=== PATIENT | male | born 1950 | race Caucasian/White ===

== ENCOUNTER 2018-11-06 12:46 | Inpatient (IN) ==
[2018-11-06] MEDS ORDERED: TYLENOL PO PRN (14:56)
[2018-11-06] MEDS ORDERED: NS 1,000 ML IV SCH (15:00)
[2018-11-06] MEDS ORDERED: ROCEPHIN 1 GM in NS 50 ML IV SCH (15:00)
[2018-11-06] MEDS ORDERED: DUONEB (A & A) INH PRN (15:00)
[2018-11-06 15:50] LABS: BASO# 0.04 X1000 (0.0-0.2); BASO% 0.4 % (0.0-0.8); EOS# 0.27 X1000 (0.0-0.7); HEMATOCRIT 41.3 % (42.0-52.0); HEMOGLOBIN 13.8 g/dL (14.0-18.0); IMM GRAN# 0.03 X1000 (0.0-0.04); IMM GRAN% 0.3 % (0.0-0.5); LYMPH# 1.52 X1000 (1.2-3.4); LYMPH% 17.1 % (20.5-51.1); MCH 31.7 PG (27-31); MCHC 33.4 g/dL (33-37); MCV 94.9 FL (81-99); MONO# 0.77 X1000 (0.11-0.59); MONO% 8.6 % (1.7-9.3); MPV 10.8 FL (7.4-10.4); NEUT# 6.28 X1000 (1.4-6.5); NEUT% 70.6 % (42.2-75.2); PLT 200 X1000 (130-400); RBC 4.35 XMIL (4.7-6.1); RDW 13.8 % (11.5-14.5); WBC 8.91 X1000 (4.8-10.8)
--- NOTE | 2018-11-06 15:50 | Diag Imaging Result Doc PS360 ---
EXAM: CHEST-PORTABLE HISTORY: Pneumonia TECHNIQUE: Chest single view COMPARISON: None. FINDINGS: There are increased interstitial markings in the mid and lower lungs bilaterally. Heart is mildly prominent. The small pleural effusions. Mild vascular distention. IMPRESSION: Basilar pneumonia with small pleural effusions and mild pulmonary edema. Electronically signed by Constantine Bingham 11/06/2018 3:48 PM
[2018-11-06 15:58] LABS: BLOOD TYPE ARTERIAL; SAMPLE BLOOD
[2018-11-06 15:59] LABS: ALLEN TEST YES; BE -3.4 mmoll (-3.0-3.0); HCO3-(ACT) 22.2 mmoll (20.0-26.0); METHB 0.8 % (0.0-1.5); MODALITY CANNULA; O2HB 93.8 % (95.0-99.0); PCO2(98.6) 32 mmHg (35-45); PO2(98.6) 74 mmHg (60-100); SAO2 97.1 % (95.0-100.0); THB 13.6 g/dL (11.5-17.4); pH(98.6) 7.41 (7.35-7.45)
[2018-11-06 16:07] LABS: AGAP 15; ALB/GLOB RATIO 1.4; ALBUMIN 3.5 g/dL (3.5-5.0); ALKALINE PHOSPHATASE 84 U/L (32-122); BUN 15 mg/dL (8-22); CALCIUM 8.2 mg/dL (8.8-10.2); CHLORIDE 99 mmol/L (98-107); COSMO 269; CREATININE 1.1 mg/dL (0.7-1.2); ESTIMATED GFR > 60; GLUCOSE 129 mg/dL (70-104); GOT 26 U/L (10-34); GPT 17 U/L (10-44); POTASSIUM 4.8 mmol/L (3.5-5.1); SODIUM 133 mmol/L (136-145); TCO2 19 mmol/L (25-35); TOTAL BILIRUBIN 0.71 mg/dL (0.20-1.00)
[2018-11-06] MEDS: DUONEB (A & A) INH SCH ×3 (16:18→23:31)
--- NOTE | 2018-11-06 16:33 | EKG Report ---
Test Performed on : 11/06/2018 4:25:48 PM Test Reason : new admit >? heart failure Blood Pressure : / mmHG Vent. Rate : 110 BPM Atrial Rate : 110 BPM P-R Int : 144 ms QRS Dur : 098 ms QT Int : 356 ms P-R-T Axes : 045 -36 107 degrees QTc Int : 481 ms Sinus tachycardia. with premature atrial complexes. Left axis deviation Nonspecific T wave abnormality Abnormal ECG When compared with ECG of 25-DEC-2017 09:30, premature atrial complexes. are now present Vent. rate has increased BY 50 BPM Nonspecific T wave abnormality, worse in Lateral leads Confirmed by Anca Morrison MD ([id number]) on 11/11/2018 9:28:47 PM
--- NOTE | 2018-11-06 16:53 | HISTORY AND PHYSICAL ---
PRIMARY CARE PROVIDER: Jesika Vale MD CHIEF COMPLAINT: Direct admit from Dr. Vale's office for hypoxia and failed outpatient treatment of pneumonia. HISTORY OF PRESENT ILLNESS: Mr. Light is a 68-year-old gentleman who carries a past medical history of hyperlipidemia, however, he recently quit taking his statin. Pancreatic problems 5 years ago. He reports he had a new bowel duct made from his intestines, recent AAA repair, pleurisy, takes an antacid at home and new onset of bilateral lower extremity pedal edema. He reports on October 17, he went to the Urgent Care was diagnosed with pneumonia, was sent home on p.o. antibiotics and breathing treatments. He reports then his O2 levels were barely in the 90s. He reports increase in work of breathing and persistent cough. Initially, it was clear and blood tinged and the blood cleared up and he continues to have clear mucus. He has not been sleeping well because of the cough. He has hot flashes. He did finish all his p.o. antibiotics. He re- presented back today at Dr. Vale's office. They believe he still has continued pneumonia and was sent for direct admit because of hypoxia 86% on room air. We are currently awaiting his full workup. PAST MEDICAL HISTORY: As per HPI. PAST SURGICAL HISTORY: 1. New bile duct from intestines. 2. Cholecystectomy. 3. AAA repair. SOCIAL HISTORY: He is . He has a son. He was a smoker for 55 years. He was a 1 pack per day smoker for 55 years. He quit right before his AAA surgery. FAMILY HISTORY: Unknown. However, he believes his biological father and uncle from [place]. HOME MEDICATIONS: Antacid. ALLERGIES: He reports he has allergies, but he does not know to what medication. DIAGNOSTIC DATA: Currently pending. ASSESSMENT AND PLAN: 1. Probable failed outpatient pneumonia. We will initially place him on Rocephin and levofloxacin. Gently hydrate him. He does have bilateral lower extremity edema. Unsure if there is any underlying heart failure again awaiting chest x-ray. ProBNP. We will also check blood cultures and sputum cultures. 2. Hypoxia. We will continue with supplemental O2. Check an ABG. 3. Bilateral lower extremity pitting edema. We will check a proBNP. Continue with elevation of his feet. He denies any heart failure history. 4. Hyperlipidemia. However, he does not feel that he has high cholesterol, he quit taking a statin. 5. Gastroesophageal reflux disease. 6. Further recommendation to follow physician evaluation, laboratory and diagnostic data. Dictated by ALVIN Palma for Se Albrecht MD cc: MD Se Ardon MD I agree with most components of history, physical, assessment and plan. A separate addendum has been dictated. ALEXANDER
[2018-11-06] MEDS: LEVAQUIN 750 MG/D5W 750 MG/150 ML IVPB IV SCH (18:38)
[2018-11-06] MEDS ORDERED: LASIX IV ONE (19:28)
--- NOTE | 2018-11-06 19:50 | ECHO REPORT ---
ORDER DATE: 11/06/2018 INTERPRETING PHYSICIAN: Efrain Alvarez MD INDICATION: CHF. M-MODE MEASUREMENTS: Left ventricle end diastole: 7.1 cm. Left ventricle end systole: 6.6 cm. Posterior wall: 0.7 cm. Interventricular septum: 0.7 cm. Left atrium: 4.4 cm. Aortic diameter: 3.4 cm. SUMMARY OF 2-DIMENSIONAL IMAGIN. Left ventricular function is severely impaired. Optison was added to optimize visualization of the endocardium. The left ventricular chamber is markedly dilated. The impairment is global. Ejection fraction is estimated at 15% to 20%. 2. The left atrium is markedly dilated. The right atrium and right ventricle are also moderately to significantly dilated. 3. The aortic valve has three cusps and they open normally. Color flow mapping is unremarkable. 4. The tricuspid valve shows moderate degree of regurgitation. The inferior vena cava is markedly dilated. 5. Pulmonary systolic pressure is estimated grossly at 58 mmHg. 6. The mitral valve shows a mild degree of regurgitation. 7. Pulsed wave Doppler of mitral inflow shows a pseudo normal pattern with a tall E wave with a short deceleration time and a short A wave. 8. Tissue Doppler of septal and lateral mitral annulus is markedly decreased. The velocities are all 3 cm per second, indicating severe diastolic dysfunction. 9. Pulmonary venous flow shows predominance of a diastolic component. 10.There is no pericardial effusion, mass, and no thrombus. 11.The LVOT VTI is only 6.8 cm, indicating that the patient is in a low cardiac output state. SUMMARY: In summary, this study shows: 1. Markedly dilated left ventricle with severely impaired systolic function, ejection fraction 15% to 20%. 2. Mild to moderate degree of mitral regurgitation. 3. Severe diastolic dysfunction. 4. Moderate pulmonary hypertension estimated at 58 mmHg. 5. Significant enlargement of the left atrium. 6. Moderately enlarged right-sided chambers. The study is consistent with a decompensated dilated cardiomyopathy. Clinical correlation is recommended. cc: Efrain Alvarez MD
--- NOTE | 2018-11-06 21:05 | HISTORY AND PHYSICAL ---
ADDENDUM:I agree with most components of history, physical, assessment and plan. In brief Mr. Light is 68 years old man with past medical history of abdominal aortic aneurysm repair, tobacco abuse where he quit about 1 year ago who was recently diagnosed with pneumonia approximately 20 days ago and was provided 10 days of antibiotics from an urgent care who saw his regular doctor for persistent shortness of breath, orthopnea and cough and was sent over to the hospital for direct admission for hypoxia with saturation as low as 85%. SUBJECTIVE: At the time of my evaluation patient says his hemoptysis has resolved but he continues to cough up yellowish expectoration. He has significant orthopnea, shortness of breath on physical exertion. Currently patient and his are at bedside. They denied any known history of coronary artery disease, DVT, PE or congestive heart failure. VITALS: Temperature 98.1 degrees, pulse 113, respiratory 22, blood pressure 145/74, saturating 94% on 4 L nasal cannula. PHYSICAL EXAMINATION: GENERAL: Does not appear in any acute distress. Oral cavity is moist. Decreased air entry with inspiratory crackles bilateral infrascapular region, no wheeze or rhonchi. S1, S2 normal. No murmur, rub, or gallop. ABDOMEN: Soft, nontender. He has significantly elevated jugular venous distention and positive hepatojugular reflex, bilateral ankle edema. He is alert, oriented x3. LABS: Suggestive of normocytic anemia, normal platelet count, he does have normal looking ABG, normal kidney function. Significant elevated proBNP and lactic acidosis as well. Microbiology. Blood culture, sputum culture pending. ASSESSMENT AND PLAN: 1. Acute hypoxic respiratory failure. Based on chest x-ray, orthopnea and bilateral lower extremity edema new onset biventricular failure is the most likely differential diagnosis however there is also component of bilateal pneumonia considering his symptoms of persistent cough and chest x-ray. I will stop intravenous fluids, give patient intravenous diuretic 1 stat and starting tomorrow morning. EKG did not have any acute coronary syndrome changes. I will follow up troponins and echocardiogram. I will also continue him on intravenous levofloxacin. 2. Others, continue home famotidine for GERD, atorvastatin for hyperlipidemia. 3. Disposition. Continue monitor patient inside the hospital. Plan of care discussed with him and his at bedside, all of the questions have been answered. cc: Se Albrecht MD [facility]
[2018-11-07 02:29] LABS: AGAP 14; BUN 17 mg/dL (8-22); CALCIUM 8.3 mg/dL (8.8-10.2); CHLORIDE 102 mmol/L (98-107); COSMO 278; ESTIMATED GFR > 60; GLUCOSE 139 mg/dL (70-104); POTASSIUM 3.9 mmol/L (3.5-5.1); SODIUM 137 mmol/L (136-145); TCO2 21 mmol/L (25-35)
[2018-11-07] MEDS: DUONEB (A & A) INH SCH ×6 (03:42→23:34)
--- NOTE | 2018-11-07 05:11 | EKG Report ---
Test Performed on : 11/07/2018 02:12:40 AM Test Reason : abnorm rhythm Blood Pressure : / mmHG Vent. Rate : 102 BPM Atrial Rate : 102 BPM P-R Int : 154 ms QRS Dur : 102 ms QT Int : 374 ms P-R-T Axes : 041 -28 120 degrees QTc Int : 487 ms Sinus tachycardia. with occasional premature ventricular complexes. Possible Left atrial enlargement Nonspecific T wave abnormality Abnormal ECG When compared with ECG of 06-NOV-2018 16:25, (Unconfirmed) premature ventricular complexes. are now present premature atrial complexes. are no longer present Confirmed by Anca Morrison MD ([id number]) on 11/11/2018 9:29:07 PM
[2018-11-07 07:05] LABS: HEMATOCRIT 37.4 % (42.0-52.0); HEMOGLOBIN 12.5 g/dL (14.0-18.0); MCH 31.7 PG (27-31); MCHC 33.4 g/dL (33-37); MCV 94.9 FL (81-99); PLT 181 X1000 (130-400); RBC 3.94 XMIL (4.7-6.1); RDW 13.6 % (11.5-14.5); WBC 8.14 X1000 (4.8-10.8)
[2018-11-07 07:06] LABS: BASO# 0.03 X1000 (0.0-0.2); BASO% 0.4 % (0.0-0.8); EOS% 6.1 % (0.0-10.0); IMM GRAN# 0.06 X1000 (0.0-0.04); IMM GRAN% 0.7 % (0.0-0.5); LYMPH# 1.82 X1000 (1.2-3.4); LYMPH% 22.4 % (20.5-51.1); MONO# 0.88 X1000 (0.11-0.59); MONO% 10.8 % (1.7-9.3); MPV 11.2 FL (7.4-10.4); NEUT# 4.85 X1000 (1.4-6.5); NEUT% 59.6 % (42.2-75.2)
[2018-11-07 07:32] LABS: ALB/GLOB RATIO 1.2; CALCIUM 8.1 mg/dL (8.8-10.2); CREATININE 1.3 mg/dL (0.7-1.2); POTASSIUM 4.4 mmol/L (3.5-5.1); TOTAL BILIRUBIN 0.43 mg/dL (0.20-1.00); TOTAL PROTEIN 5.6 g/dL (6.3-8.3)
[2018-11-07] MEDS: LASIX IV SCH ×2 (07:52→17:27)
--- NOTE | 2018-11-07 08:01 | Diag Imaging Result Doc PS360 ---
EXAM: CHEST-PORTABLE 11/07/2018 HISTORY: Pneumonia TECHNIQUE: AP portable at 0753 COMMENT: There is interstitial and alveolar opacity particularly in the lower lung keith bilaterally. This was also present on 11/06/2018 but has improved slightly particularly with respect to the left lower lobe. The hemidiaphragm is now visible which was not the case previously. IMPRESSION: Slightly improved bilateral pneumonia. Electronically signed by Spenser Torres 11/07/2018 7:59 AM
[2018-11-07] MEDS: PEPCID PO SCH (08:21)
[2018-11-07] MEDS: LIPITOR PO SCH (08:21)
[2018-11-07] MEDS: COREG PO SCH ×2 (10:33→22:40)
--- NOTE | 2018-11-07 11:46 | Diag Imaging Result Doc PS360 ---
EXAM: CT THORAX W/O CONTRAST 11/07/2018 HISTORY: probably CHF vs treatment failure of pneumonia. TECHNIQUE: This exam was performed using automated exposure control, adjustment of mA or kV according to patient size, and/or use of iterative reconstruction technique. COMMENT: There are no previous CT examinations of the thorax. There are some pleural-based fibrotic changes in the upper lung zones and there is COPD. There is alveolar and interstitial opacity in both lung bases. There is honeycombing and some possible traction bronchiectasis. There is biliary gas primarily in the left hepatic lobe. This was also present at the time the previous abdominal study of 12/18/2017. The basilar opacities are much worse than at the time of the previous examination of the abdomen. There were some pleural-based fibrotic changes in both lung bases that time however. There is no evidence of significant adenopathy. There is a small pericardial effusion. There is cardiomegaly. There are bilateral pleural effusions. The regional skeleton appears to be intact. IMPRESSION: Pulmonary fibrosis with superimposed pulmonary edema. Pericardial and pleural effusions. Electronically signed by Spenser Torres 11/07/2018 11:44 AM
--- NOTE | 2018-11-07 14:39 | CARDIOLOGY CONSULTATION ---
DATE: 11/07/2018 CHIEF COMPLAINT ON PRESENTATION: Shortness of breath. HISTORY OF PRESENT ILLNESS: Mr. Light is a 68-year-old white male with a history of AAA repair. Over the last 4 to 6 weeks, he has been dealing with some cough productive of sputum that is at times bloody. He has had worsening shortness of breath. He has had outpatient therapy for pneumonia and it sounds like it has not improved. He was seen by his primary care physician and admitted for failure of outpatient pneumonia treatment. He denies any orthopnea. He denies any chest pain. PAST MEDICAL HISTORY: 1. Significant for peripheral vascular disease with history of AAA repair. 2. Hyperlipidemia. 3. Reflux disease. SOCIAL HISTORY: He quit smoking 1 year ago. He is . FAMILY HISTORY: Significant for he thinks an ME in his biological father but he is not clear. REVIEW OF SYSTEMS: A 10 system review of systems is negative except for those things mentioned in the HPI. PHYSICAL EXAMINATION: Vital Signs: The patient is afebrile. His heart rate is 90, his blood pressure is 109/71. His intakes and outputs are inaccurate secondary to lack of strict measurement. General: He is in no acute distress. HEENT: Oropharynx is moist. Poor dentition. Eye examination is pink conjunctivae, white sclerae. Neck: Examination shows no obvious thyromegaly or thyroid tenderness. Cardiovascular: He sounds to be in a regular rate and rhythm. He has no obvious murmurs. He has no S3. He has no lower extremity edema. Chest: Has some mild basilar rales. No increased work of breathing. Abdomen: Soft, nontender, nondistended. He has no obvious organomegaly. Skin: Warm and dry throughout without any rashes. Neurological: He is moving all extremities well. He has no lateralizing deficits. PERTINENT DATA: CT of the chest showed pulmonary fibrosis with superimposed pulmonary edema. His echocardiogram demonstrated an ejection fraction of 15 to 20 percent, moderate MR, severe diastolic dysfunction, pulmonary hypertension was noted, severe left atrial enlargement, no pericardial effusion. His EKGs demonstrated at 16:25 sinus tach, suggestion of LVH, nonspecific ST-T changes. Subsequent EKG on the at 2:12 a.m. showed sinus rhythm, rate of 102 beats per minute, suggestion of nonspecific ST-T changes. His laboratory data demonstrates a white count 8.1, hematocrit 37, platelet count is 181,000. His sodium is 137, potassium 3.9 BUN 17, creatinine is 1.0. His cardiac enzymes are negative. His proBNP yesterday was 25,000. His lactate on presentation was 2.4. Albumin is 3. ASSESSMENT: Mr. Light is a 68-year-old gentleman who presents with new onset heart failure. PLAN: We will proceed with medication adjustments. He has been placed on Lasix and I will add in losartan. He is already on some Coreg. We will continue with those medications and hopefully titrate during this inpatient stay. We will ensure that he has strict intakes and outputs. cc: Germán Way MD
[2018-11-07] MEDS: LEVAQUIN 750 MG/D5W 750 MG/150 ML IVPB IV SCH (15:41)
--- NOTE | 2018-11-07 16:44 | PROGRESS NOTE ---
DATE: 11/07/2018 INTERVAL HISTORY: The patient is still requiring oxygen, but dyspnea improved. Saturations are reasonable. Afebrile. No acute events overnight. No new complaints. REVIEW OF SYSTEMS: A 12 point review of systems negative except as per Interval History. LABORATORY DATA: WBC 8.1, hemoglobin 12.5, hematocrit 37.4, platelets 181,000. Sodium 137, potassium 3.9, BUN 17, creatinine 1, glucose 139. Troponin negative x3. BNP 25,000. IMAGING: CT chest with pulmonary fibrosis and superimposed pulmonary edema. No clear evidence of residual pneumonia. Small pericardial effusion. VITALS: Temperature maximum 98.1 degrees, pulse 95, respirations 16, blood pressure 110/73, O2 saturation 95% on 4 L by nasal cannula. PHYSICAL EXAMINATION: General: No acute distress. Vitals: As above. HEENT: Normocephalic, atraumatic. Moist mucous membranes. Neck: No cervical adenopathy. Cardiovascular: Regular rate and rhythm. No murmurs noted. Pulmonary: Reasonable air entry. No wheezing. Bibasilar crackles noted. Abdomen: Soft, nontender, nondistended. Bowel sounds positive. Extremities: Peripheral pulses intact. No clubbing or cyanosis. Mild pitting edema limited to the feet. Neurologic: Cranial nerves grossly intact. No focal deficits. Psychiatric: Normal mood and affect. Awake, alert, and oriented x3. Skin: No new rashes or lesions identified. ASSESSMENT AND PLAN: 1. Acute hypoxic respiratory failure, acute combined systolic and diastolic congestive heart failure. The patient with recent weight gain, worsening edema, hypoxia noted in clinic, and sent here from [facility]. Initially, there was some concern for failure of treatment of outpatient pneumonia, but CT scan here did not really show any pneumonia. No fever, no white count. It does show significant edema, so favor congestive heart failure. If no clear evidence of pneumonia develops, then we will likely discontinue antibiotics tomorrow. Placed on diuresis with Lasix 40 IV q.12 h., which we will continue for now. Strict intakes and outputs ordered as it does not appear to have been done at this point. We will monitor ins and outs. The patient does state that his dyspnea is improved and that his lower extremity edema is also significantly improved. Started on Coreg this morning and Cardiology initiated losartan. We will monitor kidney function. No previous diagnosis of heart failure. We will see what Cardiology says about additional ischemic workup. Continue diuresis and monitor. Echocardiogram showed significantly decreased ejection fraction of 15 to 20, as well as diastolic failure and pulmonary hypertension. 2. Chronic obstructive pulmonary disease. No wheezing. Reasonable air entry. No sign of exacerbation at this time. Continue to monitor. Nebulizers as needed. 3. Hyponatremia, resolved. 4. Hyperlipidemia. Continue home atorvastatin. 5. Gastroesophageal reflux disease. Continue home Pepcid.
[2018-11-08] MEDS ORDERED: KLOR-CON PO ONE (02:24)
[2018-11-08] MEDS: DUONEB (A & A) INH SCH ×6 (03:32→23:29)
[2018-11-08] MEDS: LASIX IV SCH ×2 (06:11→17:19)
[2018-11-08 07:27] LABS: BASO# 0.02 X1000 (0.0-0.2); BASO% 0.2 % (0.0-0.8); EOS# 1.47 X1000 (0.0-0.7); EOS% 15.8 % (0.0-10.0); HEMATOCRIT 42.2 % (42.0-52.0); IMM GRAN# 0.04 X1000 (0.0-0.04); IMM GRAN% 0.4 % (0.0-0.5); LYMPH# 1.64 X1000 (1.2-3.4); LYMPH% 17.6 % (20.5-51.1); MCH 31.7 PG (27-31); MCHC 33.2 g/dL (33-37); MCV 95.7 FL (81-99); MONO% 7.5 % (1.7-9.3); MPV 11.1 FL (7.4-10.4); NEUT# 5.46 X1000 (1.4-6.5); NEUT% 58.5 % (42.2-75.2); PLT 240 X1000 (130-400); RBC 4.41 XMIL (4.7-6.1); RDW 13.8 % (11.5-14.5); WBC 9.33 X1000 (4.8-10.8)
[2018-11-08 07:46] LABS: CALCIUM 8.8 mg/dL (8.8-10.2); CREATININE 1.3 mg/dL (0.7-1.2); POTASSIUM 3.6 mmol/L (3.5-5.1)
[2018-11-08] MEDS: COZAAR PO SCH (09:52)
[2018-11-08] MEDS: LIPITOR PO SCH (09:52)
[2018-11-08] MEDS: COREG PO SCH ×2 (09:52→21:40)
[2018-11-08] MEDS: PEPCID PO SCH (09:52)
--- NOTE | 2018-11-08 16:46 | PROGRESS NOTE ---
DATE: 11/08/2018 INTERVAL HISTORY: The patient is still requiring a fair amount of oxygen, but symptomatically improving. Lower extremity edema entirely resolved. Still with a little nonproductive cough. No new complaints. No acute events overnight. REVIEW OF SYSTEMS: A 12 point review of systems negative except as per Interval History. LABORATORIES: WBC 9.3, hemoglobin 14.0, hematocrit 42.2, platelets 240,000. Sodium 138, potassium 3.6, bicarbonate 25, BUN 19, creatinine 1.3. Glucose 137. BNP 11,498. VITALS: Temperature maximum 98.1 degrees, pulse 101, respirations 16, blood pressure 106/69. PHYSICAL EXAMINATION: General: No acute distress. Vitals: As above. HEENT: Normocephalic, atraumatic. Moist mucous membranes. Neck: No cervical adenopathy. Cardiovascular: Regular rate and rhythm. No murmurs noted. Pulmonary: Good air entry. No wheezing. Still with some bibasilar crackles, although slightly improved. Abdomen: Soft, nontender, nondistended. Bowel sounds positive. Extremities: Peripheral pulses intact. No clubbing or cyanosis. No further edema. Neurologic: Cranial nerves grossly intact. No focal deficits. Psychiatric: Normal mood and affect. Awake, alert, and oriented x3. Skin: No new rashes or lesions identified. ASSESSMENT AND PLAN: 1. Acute hypoxic respiratory failure, acute combined systolic and diastolic congestive heart failure. The patient's edema resolved, but still requiring a fair amount of oxygen. Beginning to get some diuresis with his current dose of Lasix. We will continue current dose of Lasix for now. CT yesterday with no evidence of pneumonia. The patient afebrile without leukocytosis, so we will go ahead and discontinue antibiotics. The patient on Coreg and Cozaar for his heart failure. He did have a couple episodes of mild bradycardia, but discussing it with the patient, he seems to have been asymptomatic with those. May be difficult to titrate his Coreg up, though. Continue diuresis and monitor. Hopefully, we can get him off oxygen and discharged home within the next day or 2 unless Cardiology decides to pursue further ischemic workup. 2. Chronic obstructive pulmonary disease. No wheezing. Reasonable air entry. No sign of exacerbation at this time. Continue nebulizers as needed. 3. Hyponatremia, resolved. 4. Hyperlipidemia. Continue home statin. 5. Gastroesophageal reflux disease. Continue home Pepcid.
--- NOTE | 2018-11-08 20:50 | CARDIOLOGY PROGRESS NOTE ---
DATE: 11/08/2018 SUBJECTIVE: Mr. Light has had very poor sleep quality. He reports he is somewhat anxious with the new health diagnoses that have come this hospitalization. PHYSICAL EXAMINATION: Vital Signs: He is afebrile, heart rate 97, blood pressure 104/74. Overall, he appears to have a negative fluid balance with some voids not measured. General: He is in no acute distress. Cardiovascular: He sounds to be in a regular rate and rhythm. He has no murmurs. He has no S3. He has no lower extremity edema. CHEST: Exam is clear. He has no increased work of breathing. Abdomen: Soft, nontender. DATA: Potassium is 3.6, BUN 19, creatinine is 1.3. His white count is 9, hematocrit is 42. ASSESSMENT: Mr. Light is a 68-year-old gentleman with new onset heart failure. PLAN: 1. At this time, we will continue with medications. He is on Lasix which we will change to 40 mg p.o. daily. He is on losartan and a low dose of Coreg. 2. His proBNP reduced significantly on the above regimen. 3. Hopefully, he could be discharged in the near future with outpatient ischemia evaluation performed. cc: Germán Way MD
[2018-11-08] MEDS: DESYREL PO PRN (21:40)
[2018-11-09] MEDS: DUONEB (A & A) INH SCH ×6 (03:37→23:20)
--- NOTE | 2018-11-09 06:18 | Diag Imaging Result Doc PS360 ---
EXAM: CHEST-PORTABLE HISTORY: acute chf TECHNIQUE: Portable chest COMPARISON: 11/07/2018 FINDINGS: There are increased interstitial markings in the mid and lower lungs similar to the prior exam. The heart is mildly enlarged. There are small pleural effusions. Mild vascular distention. IMPRESSION: Stable chest. 'V 11/07/2018 Electronically signed by Constantine Bingham 11/09/2018 6:16 AM
[2018-11-09 07:16] LABS: BASO# 0.03 X1000 (0.0-0.2); BASO% 0.4 % (0.0-0.8); EOS# 1.47 X1000 (0.0-0.7); EOS% 18.1 % (0.0-10.0); HEMATOCRIT 38.6 % (42.0-52.0); HEMOGLOBIN 12.8 g/dL (14.0-18.0); IMM GRAN# 0.04 X1000 (0.0-0.04); IMM GRAN% 0.5 % (0.0-0.5); LYMPH# 1.52 X1000 (1.2-3.4); LYMPH% 18.7 % (20.5-51.1); MCH 31.8 PG (27-31); MCHC 33.2 g/dL (33-37); MCV 95.8 FL (81-99); MONO# 0.64 X1000 (0.11-0.59); MONO% 7.9 % (1.7-9.3); MPV 10.8 FL (7.4-10.4); NEUT# 4.43 X1000 (1.4-6.5); NEUT% 54.4 % (42.2-75.2); PLT 217 X1000 (130-400); RBC 4.03 XMIL (4.7-6.1); RDW 13.8 % (11.5-14.5); WBC 8.13 X1000 (4.8-10.8)
[2018-11-09 07:33] LABS: CALCIUM 8.7 mg/dL (8.8-10.2); CREATININE 1.2 mg/dL (0.7-1.2); POTASSIUM 3.5 mmol/L (3.5-5.1)
[2018-11-09] MEDS: LASIX PO SCH (11:27)
[2018-11-09] MEDS: LIPITOR PO SCH (11:27)
[2018-11-09] MEDS: PEPCID PO SCH (11:28)
[2018-11-09] MEDS: COREG PO SCH (11:29)
[2018-11-09] MEDS: COZAAR PO SCH ×2 (11:30→12:36)
[2018-11-09] MEDS ORDERED: TOPROL XL PO SCH ×2 (12:15→12:25)
[2018-11-09] MEDS: LANOXIN PO SCH (12:37)
--- NOTE | 2018-11-09 17:09 | PROGRESS NOTE ---
DATE: 11/09/2018 INTERVAL HISTORY: The patient reports symptomatic improvement in his symptoms. We have been able to wean down his oxygen some, but when we attempted to take him off oxygen, he rapidly desaturated down to the 80s. Afebrile overnight but did have several episodes of nonsustained V-tach. Otherwise, no acute events overnight. No new complaints. REVIEW OF SYSTEMS: Twelve-point review of systems negative except as per interval history. LABS: WBCs 8.1, hemoglobin 12.8, hematocrit 38.6, platelets 217. Basic metabolic panel unremarkable aside from creatinine of 1.2. BNP 8862. Chest x-ray still with mild vascular distention. PHYSICAL EXAMINATION: Vital Signs: T-max 98.3 degrees, pulse 89, respirations 16, blood pressure 97/69, O2 saturation 96% on 2 L by nasal cannula. It was 85% on room air. General: No acute distress. HEENT: Normocephalic, atraumatic. Moist mucous membranes. Neck: No cervical adenopathy. Cardiovascular: Regular rate and rhythm. No murmurs noted. Pulmonary: Bibasilar crackles, essentially stable from yesterday. Good air entry. No wheezing. Abdomen: Soft, nontender, nondistended. Bowel sounds positive. Extremities: Peripheral pulses intact. No clubbing or cyanosis. No further edema. Neurologic: Cranial nerves grossly intact. No focal deficits identified. Psychiatric: Normal mood and affect. Awake, alert and oriented x3. Skin: No new rashes or lesions seen. ASSESSMENT AND PLAN: 1. Acute hypoxic respiratory failure and acute combined systolic and diastolic congestive heart failure. Patient's edema has resolved, and O2 requirement is down some. Have not been able to wean him off oxygen entirely. Patient afebrile without leukocytosis. Doing well off antibiotics. Patient on Coreg, and Cozaar. Has had a couple episodes of mild bradycardia, but generally tolerating it okay. Cardiology transitioning him to Toprol-XL. Continue efforts at diuresis and monitor. Initially Cardiology favored further ischemic workup as an outpatient, but with his very low ejection fraction of 15% to 20% and episodes of nonsustained ventricular tachycardia, they are now considering likely catheterization on Monday, once his pulmonary status is optimized. 2. Nonsustained ventricular tachycardia. Cardiology on board as above. Monitor closely. 3. Chronic obstructive pulmonary disease. No wheezing. Reasonable air entry. No sign of exacerbation at this time, but could be contributing to his hypoxia. Continue nebulizers as needed. 4. Hyponatremia, resolved. 5. Hyperlipidemia. Continue home statin. 6. Gastroesophageal reflux disease. Continue Pepcid. 7. Possible mild cognitive impairment. Patient without fauzia confusion, but over the course of his hospitalization appeared to have extremely poor recall and some possible very mild confusion, although he has remained oriented x3 throughout. Suspect he has at least some degree of mild cognitive impairment, possibly worsened by his recent hypoxia of unknown duration prior to this admission.
[2018-11-10] MEDS: DUONEB (A & A) INH SCH ×6 (03:30→23:39)
[2018-11-10 06:27] LABS: BASO# 0.03 X1000 (0.0-0.2); BASO% 0.3 % (0.0-0.8); EOS# 1.55 X1000 (0.0-0.7); EOS% 17.7 % (0.0-10.0); HEMATOCRIT 38.4 % (42.0-52.0); HEMOGLOBIN 12.5 g/dL (14.0-18.0); IMM GRAN# 0.03 X1000 (0.0-0.04); IMM GRAN% 0.3 % (0.0-0.5); LYMPH# 1.66 X1000 (1.2-3.4); LYMPH% 18.9 % (20.5-51.1); MCH 31.2 PG (27-31); MCHC 32.6 g/dL (33-37); MCV 95.8 FL (81-99); MONO# 0.77 X1000 (0.11-0.59); MONO% 8.8 % (1.7-9.3); MPV 10.9 FL (7.4-10.4); NEUT# 4.72 X1000 (1.4-6.5); PLT 213 X1000 (130-400); RBC 4.01 XMIL (4.7-6.1); RDW 13.7 % (11.5-14.5); WBC 8.76 X1000 (4.8-10.8)
[2018-11-10 07:14] LABS: AGAP 13; BUN 21 mg/dL (8-22); CALCIUM 8.2 mg/dL (8.8-10.2); CHLORIDE 100 mmol/L (98-107); COSMO 284; CREATININE 1.1 mg/dL (0.7-1.2); ESTIMATED GFR > 60; GLUCOSE 120 mg/dL (70-104); POTASSIUM 3.2 mmol/L (3.5-5.1); SODIUM 140 mmol/L (136-145); TCO2 27 mmol/L (25-35)
--- NOTE | 2018-11-10 07:17 | EKG Report ---
Test Performed on : 11/10/2018 06:20:02 AM Test Reason : nsvt Blood Pressure : / mmHG Vent. Rate : 091 BPM Atrial Rate : 091 BPM P-R Int : 162 ms QRS Dur : 112 ms QT Int : 386 ms P-R-T Axes : 035 -33 089 degrees QTc Int : 474 ms Normal sinus rhythm. Possible Left atrial enlargement Left axis deviation Left ventricular hypertrophy Nonspecific T wave abnormality Prolonged QT Abnormal ECG When compared with ECG of 10-NOV-2018 06:19, (Unconfirmed) Previous ECG has undetermined rhythm, needs review Confirmed by Prince MAGANA MEleanor Smiley ([id number]) on 11/11/2018 9:33:08 PM
[2018-11-10] MEDS: LASIX PO SCH (09:24)
[2018-11-10] MEDS: COZAAR PO SCH (09:24)
[2018-11-10] MEDS: TOPROL XL PO SCH (09:24)
[2018-11-10] MEDS: PEPCID PO SCH (09:25)
[2018-11-10] MEDS: LANOXIN PO SCH (09:25)
[2018-11-10] MEDS: LIPITOR PO SCH (09:25)
[2018-11-10] MEDS: ATIVAN PO PRN ×2 (09:31→21:14)
--- NOTE | 2018-11-10 13:32 | CARDIOLOGY PROGRESS NOTE ---
DATE: 11/10/2018 CHIEF COMPLAINT: Shortness of breath. SUBJECTIVE: Mr. Light is feeling a little more comfortable. He is still on oxygen. He denies having any chest pain.telemetry shows runs of non sustained ventricular tachycardia. OBJECTIVE: Blood pressure is 104/68, temperature 97.7, pulse 90, respirations 16. He is awake, alert, oriented, in no distress. HEENT is unremarkable. Chest: Bilateral velcro-like crackles in both lungs. Heart sounds are regular and rhythmic. No gallop or murmur is noted. Abdomen is nontender. Extremities showed palpable pulses. Neurologic: Follows commands. Moves all 4 extremities. DIAGNOSTIC DATA: Blood work shows sodium 140, potassium 3.2, BUN is 21, creatinine 1.1. IMPRESSION: 1. The patient has systolic heart failure, probably of new onset. 2. Suspect severe coronary atherosclerosis. CT scan of the chest reveals extensive calcification of the coronary arteries. 3. Idiopathic pulmonary fibrosis. There are bilateral infiltrates in both lungs. 4. Chronic obstructive pulmonary disease. 5. History of abdominal aortic aneurysm repair in 12/2017. 6. Ex-smoker. 7. Hypertension. 8. Non sustained ventricular tachycardia. RECOMMENDATIONS: At this time, we will continue supportive measures. I do agree with Dr. Way that this patient really needs to have a right and left heart catheterization as a first step in his cardiac evaluation. Then probably we need to determine viability of his left ventricle prior to proceeding with surgical or percutaneous revascularization. The patient is likely to have 3- vessel disease or left main coronary artery stenosis based on the significant left ventricular systolic impairment. In addition, he does have frequent runs of nonsustained ventricular tachycardia, which increases risk for sudden cardiac . Moreover, I believe we ought to investigate lung markers including Erythrocyte sedimentation rate, C-reactive protein and rheumatoid arthritis markers because of the extensive pulmonary fibrosis noted on the CT scan of the chest. That could make this patient a poor surgical candidate. We will follow. cc: MD ALEXANDER Arguelles
--- NOTE | 2018-11-10 14:23 | PROGRESS NOTE ---
DATE: 11/10/2018 INTERVAL HISTORY: The patient with continued slow improvement in oxygen requirements and dyspnea. He states that he is continuing to improve from a symptomatic standpoint aside from dry nasal passages likely related to his oxygen. No acute events over night aside from some continued intermittent short episodes of nonsustained ventricular tachycardia. No new complaints. REVIEW OF SYSTEMS: Review of systems 12 point review of systems negative except as per interval history. LABS: 8.7, hemoglobin 12.5, hematocrit 38.4, platelets 213,000. Sodium 140, potassium 3.2, BUN 21, creatinine 1.1, glucose 120, magnesium 2. VITALS: T-max 98.2 degrees, pulse 104, respirations 16, blood pressure 109/70, O2 saturation 95% on 2 L by nasal cannula. PHYSICAL EXAMINATION: General: No acute distress. HEENT: Normocephalic, atraumatic. Moist mucous membranes. No cervical adenopathy. Cardiovascular: Regular rate. No murmurs noted. Pulmonary: Bibasilar crackles, improving slowly. Good air entry. No wheezing. Abdomen: Soft, nontender, nondistended. Bowel sounds positive. Extremities: Peripheral pulses intact. No clubbing, cyanosis, or edema. Neurologic: Cranial nerves grossly intact. No focal deficits identified. Psychiatric: Normal mood and affect, awake alert oriented 3. Skin: No new rashes or lesions identified. ASSESSMENT AND PLAN: 1. Acute hypoxic respiratory failure and acute combined systolic and diastolic congestive heart failure, pulmonary hypertension. Patient's edema has resolved. O2 requirements continue to improve slowly with diuresis. Remains afebrile without leukocytosis. Blood pressure on the low side of normal, but appears to be tolerating Cozaar and Toprol-XL and Lasix so far. Digoxin added by cardiology. Given profoundly low EF of 15 to 20 and intermittent runs of nonsustained ventricular tachycardia, planning on cardiac cath on Monday. 2. Nonsustained ventricular tachycardia as above. Continue to monitor. The patient has been asymptomatic during these episodes. 3. Chronic obstructive pulmonary disease, no wheezing, reasonable air entry. No sign of exacerbation at this time. Continue nebulizers as needed and monitor. 4. Hyponatremia, resolved. 5. Hyperlipidemia, continue statin. 6. Gastroesophageal reflux disease. Continue Pepcid. 7. Likely mild cognitive impairment. Poor recall and intermittent mild confusion but remains cooperative and oriented. [facility]
[2018-11-10] MEDS: DESYREL PO PRN (21:14)
[2018-11-11] MEDS: DUONEB (A & A) INH SCH ×6 (03:58→22:55)
--- NOTE | 2018-11-11 06:57 | EKG Report ---
Test Performed on : 11/11/2018 06:27:39 AM Test Reason : nsvt Blood Pressure : / mmHG Vent. Rate : 092 BPM Atrial Rate : 092 BPM P-R Int : 158 ms QRS Dur : 104 ms QT Int : 380 ms P-R-T Axes : 032 -26 073 degrees QTc Int : 469 ms Sinus rhythm. with occasional premature ventricular complexes. Possible Left atrial enlargement Left ventricular hypertrophy Nonspecific T wave abnormality Prolonged QT Abnormal ECG When compared with ECG of 10-NOV-2018 06:20, (Unconfirmed) premature ventricular complexes. are now present Confirmed by Anca Morrison MD ([id number]) on 11/11/2018 9:33:20 PM
--- NOTE | 2018-11-11 07:08 | Diag Imaging Result Doc PS360 ---
EXAM: CHEST-PORTABLE 11/11/2018 HISTORY: dyspnea TECHNIQUE: AP portable at 0529 COMMENT: There is interstitial and alveolar opacity in the lung bases similar in appearance to the previous examination of 11/09/2018. There is cardiomegaly. The appearance of the chest has improved slightly since 11/06/2018 and portions of the left hemidiaphragm are visible on the current study. IMPRESSION: Pulmonary edema and/or pneumonia. Electronically signed by Spenser Torres 11/11/2018 7:06 AM
[2018-11-11 07:21] LABS: CHOLESTEROL 108 mg/dL (0-200); HDL 29 mg/dL (35-55); LDL 56 mg/dL; TRIGLYCERIDES 117 mg/dL (39-160); VLDL 23 mg/dL
[2018-11-11] MEDS: COZAAR PO SCH (08:42)
[2018-11-11] MEDS: LIPITOR PO SCH (08:42)
[2018-11-11] MEDS: TOPROL XL PO SCH (08:42)
[2018-11-11] MEDS: PEPCID PO SCH (08:42)
[2018-11-11] MEDS: ATIVAN PO PRN (08:42)
[2018-11-11] MEDS: LASIX PO SCH (08:43)
[2018-11-11] MEDS: LANOXIN PO SCH (08:43)
--- NOTE | 2018-11-11 10:42 | CARDIOLOGY PROGRESS NOTE ---
DATE: 11/11/2018 CHIEF COMPLAINT: Shortness of breath. SUBJECTIVE: Mr. Light is feeling better. His capability lead shows only PVCs and ventricular couplets. No more runs of ventricular tachycardia, at least in the past 24 hours. He is not having chest pain. OBJECTIVE: Blood pressure is 110/81, pulse 100, respirations 16, temperature 97.6. He is awake, alert, oriented, no distress. HEENT is unremarkable. Chest: Sounds diffusely diminished with Velcro-like crackles at the bases. Heart sounds regular and rhythmic. I do not hear gallop or murmur. Abdomen is nontender. Extremities showed no edema. Good pulses. Neurologic: Follows commands. Moves all 4 extremities. DIAGNOSTIC DATA: Blood work has not been done today. IMPRESSION: 1. The patient presented with increasing dyspnea consistent with systolic and diastolic heart failure. 2. Nonsustained ventricular tachycardia. 3. Idiopathic pulmonary fibrosis, rather extensive. There are minimal inflammatory changes noted on his blood work. His C-reactive protein is 15.7, which is about 3 times baseline, and his sedimentation rate is normal. His lipid panel showed LDL of 56, HDL was 29, total cholesterol 108. 4. History of abdominal aortic aneurysm repair in 12/2017. 5. Ex-smoker. 7. History of hypertension. 8. Suspected severe coronary atherosclerotic disease. RECOMMENDATIONS: At this time, the patient is agreeable to undergo right and left heart catheterization. The benefits, risks, complications, and rationale for doing that procedure have been extensively discussed with him. In addition to the right and left heart catheterization, this patient is going to require subsequently a viability study of the left ventricle as well as a carotid ultrasound and possibly a CT scan of the head to make sure that he does not have significant ischemic cerebrovascular disease, which is highly likely given his extensive atherosclerotic involvement of the abdominal aorta. Further advice will be forthcoming. cc: Efrain Alvarez MD [facility]ENTER[facility]
--- NOTE | 2018-11-11 14:40 | PROGRESS NOTE ---
DATE: 11/11/2018 INTERVAL HISTORY: The patient's dyspnea continues to improve. Oxygen requirements coming down. Nearly weaned off oxygen at this time. No new complaints. No acute events overnight. REVIEW OF SYSTEMS: Twelve point review of systems negative except as per interval history. LABS: CRP 15.7, HDL 29, LDL 59. VITALS: T-max 98.5 degrees, pulse 16, blood pressure 93/67, O2 saturation 98% on 1 L nasal. PHYSICAL EXAMINATION: General: No acute distress. Vitals: As above. HEENT: Normocephalic, atraumatic. Moist mucous membranes. No cervical adenopathy. Cardiovascular: Regular rate and rhythm without murmurs noted. Pulmonary: Still with Velcro-like crackles at both, primarily at the bases. Superior lungs largely clear. Abdomen: Soft, nontender, nondistended. Bowel sounds positive. Extremities: Peripheral pulses intact. No clubbing, cyanosis or edema. Neurologic: Cranial nerves grossly intact. No focal deficits identified. Psychiatric: Normal mood and affect. Awake, alert, oriented x3. Skin: No new rashes or lesions identified. ASSESSMENT AND PLAN: 1. Acute hypoxic respiratory failure and acute combined systolic diastolic congestive heart failure, pulmonary hypertension. Patient edema was resolved. O2 requirements are improving slowly with diuresis, almost off oxygen at this point. Remains afebrile. Tolerating Cozaar, Toprol, and Lasix so far. Also on digoxin as per Cardiology. Planning on cardiac cath tomorrow. 2. Nonsustained ventricular tachycardia as above. Stable ventricular tachycardia. Continue to monitor. Patient has been asymptomatic. 3. COPD, pulmonary fibrosis. No wheezing at this point, pretty good air entry. No sign of exacerbation at this time. The patient's COPD likely related to smoking history. Suspect his fibrosis is related to his fairly significant asbestos exposure, but could be idiopathic. 4. Hyponatremia, resolved. 5. Hyperlipidemia, continue statin. 6. Gastroesophageal reflux disease. Continue Pepcid. 7. Likely mild cognitive impairment. We recall intermittent mild confusion but the patient continues to be oriented x3 and cooperative.
[2018-11-11] MEDS: DESYREL PO PRN (21:45)
[2018-11-12] MEDS: DUONEB (A & A) INH SCH ×6 (04:33→23:05)
[2018-11-12 05:52] LABS: HEMATOCRIT 42.5 % (42.0-52.0); HEMOGLOBIN 13.8 g/dL (14.0-18.0); MCH 31.7 PG (27-31); MCHC 32.5 g/dL (33-37); MCV 97.5 FL (81-99); MPV 10.8 FL (7.4-10.4); RBC 4.36 XMIL (4.7-6.1); RDW 13.9 % (11.5-14.5); WBC 8.16 X1000 (4.8-10.8)
[2018-11-12 05:54] LABS: INR 1.26
[2018-11-12 06:00] LABS: AGAP 10; BUN 15 mg/dL (8-22); CALCIUM 8.8 mg/dL (8.8-10.2); CHLORIDE 104 mmol/L (98-107); COSMO 288; CREATININE 1.1 mg/dL (0.7-1.2); ESTIMATED GFR > 60; GLUCOSE 110 mg/dL (70-104); MAGNESIUM 2.1 mg/dL (1.5-2.7); POTASSIUM 3.9 mmol/L (3.5-5.1); SODIUM 144 mmol/L (136-145); TCO2 30 mmol/L (25-35)
--- NOTE | 2018-11-12 07:11 | EKG Report ---
Test Performed on : 11/12/2018 06:41:08 AM Test Reason : nsvt Blood Pressure : / mmHG Vent. Rate : 102 BPM Atrial Rate : 102 BPM P-R Int : 158 ms QRS Dur : 102 ms QT Int : 364 ms P-R-T Axes : 041 -32 087 degrees QTc Int : 474 ms Sinus tachycardia. Possible Left atrial enlargement Left axis deviation Nonspecific ST and T wave abnormality Abnormal ECG When compared with ECG of 11-NOV-2018 06:27, premature ventricular complexes. are no longer present Confirmed by Anca Morrison MD ([id number]) on 11/12/2018 12:41:57 PM
[2018-11-12] MEDS ORDERED: NS 0 ML ONE (08:16)
[2018-11-12] MEDS ORDERED: HEPARIN 1000 UNITS/NS 1,000 UNIT/500 ML IV.SOLN ONE (08:16)
[2018-11-12] MEDS ORDERED: XYLOCAINE 1% ONE (08:28)
[2018-11-12] MEDS ORDERED: NITROGLYCERIN ONE (08:28)
[2018-11-12] MEDS: LANOXIN PO SCH (08:31)
[2018-11-12] MEDS: COZAAR PO SCH (08:31)
[2018-11-12] MEDS: TOPROL XL PO SCH (08:31)
[2018-11-12] MEDS: LIPITOR PO SCH (08:31)
[2018-11-12] MEDS: PEPCID PO SCH (08:31)
[2018-11-12] MEDS: LASIX PO SCH (08:32)
[2018-11-12] MEDS ORDERED: ANESTHESIA PB SET 88 IN 5742 ONE (08:52)
[2018-11-12] MEDS ORDERED: NS 1,000 ML ONE (08:52)
[2018-11-12] MEDS ORDERED: CLAVE TWINSITE 32 IN 11959 ONE (08:52)
[2018-11-12] MEDS ORDERED: VERSED ONE (09:02)
[2018-11-12] MEDS ORDERED: DILAUDID ONE (09:02)
--- NOTE | 2018-11-12 10:53 | EKG Report ---
Test Performed on : 11/12/2018 10:35:23 AM Test Reason : post heart cath Blood Pressure : / mmHG Vent. Rate : 094 BPM Atrial Rate : 094 BPM P-R Int : 154 ms QRS Dur : 108 ms QT Int : 380 ms P-R-T Axes : 031 -35 055 degrees QTc Int : 475 ms Normal sinus rhythm. Left axis deviation Nonspecific T wave abnormality Prolonged QT Abnormal ECG When compared with ECG of 12-NOV-2018 06:41, (Unconfirmed) No significant change was found Confirmed by Anca Morrison MD ([id number]) on 11/12/2018 12:42:23 PM
--- NOTE | 2018-11-12 15:00 | PROGRESS NOTE ---
DATE: 11/12/2018 INTERVAL HISTORY: The patient is status post cardiac catheterization this morning showing three- vessel disease. Dyspnea and oxygen requirements continue to improve slowly. Was off of oxygen for most of the night and morning. Back on oxygen post procedure with the sedation he had. No other acute events. No new complaints. REVIEW OF SYSTEMS: Twelve-point review of systems is negative except as per interval history. LABORATORY DATA: WBC 8.1, hemoglobin 13.8, hematocrit 42.5, platelets 219,000. INR 1.26. Sodium 144, potassium 3.9, BUN 15, creatinine 1.1, glucose 110. CRP 15.7, HDL 29, LDL 56. OBJECTIVE: Vital Signs: T-max 98.6 degrees, pulse 93, respirations 14, blood pressure 112/81. O2 saturations 91% on 3 L by nasal cannula. General: No acute distress. HEENT: Normocephalic, atraumatic. Moist mucous membranes. No cervical adenopathy. Cardiovascular: Regular rate and rhythm with no murmurs, rubs, or gallops noted. Pulmonary: Still with Velcro-like crackles at both bases, which are approximately stable. Superior lungs largely clear. Abdomen: Soft, nontender, nondistended. Bowel sounds positive. Extremities: Peripheral pulses intact. No clubbing, cyanosis, or edema. Neurologic: Cranial nerves grossly intact. No focal deficits identified. Psychiatric: Normal mood and affect. Awake, alert, and oriented x3, although responses sometimes slow. Skin: No new rashes or lesions identified. ASSESSMENT AND PLAN: 1. Acute hypoxic respiratory failure and acute combined systolic diastolic congestive heart failure, pulmonary hypertension. The patient's lower extremity edema resolved. O2 requirements also much improved. Was off oxygen prior to sedation with catheterization this morning. Remains afebrile. Tolerating Cozaar, Toprol, and Lasix thus far. Continue those and digoxin as per Cardiology. Cardiac catheterization this morning showing three-vessel disease. The plan is for myocardial viability study tomorrow. Depending on results of that, may or may not transfer to [place]. 2. Nonsustained ventricular tachycardia. The patient largely stable but continues to have occasional short episodes of nonsustained ventricular tachycardia. Continue to monitor. We will attempt to clarify with Cardiology whether the patient will need a LifeVest at discharge. 3. Chronic obstructive pulmonary disease, pulmonary fibrosis. No wheezing. Reasonable air entry at this point. No sign of exacerbation at this time. COPD likely related to smoking history, but the patient also with significant asbestos exposure. Fibrosis may be related to said asbestos exposure. 4. Hyponatremia resolved. 5. Hyperlipidemia. Continue statin. 6. Gastroesophageal reflux disease. Continue Pepcid. 7. Likely mild cognitive impairment. The patient remains oriented x3 and cooperative but does display intermittent mild confusion and poor recall.
[2018-11-13] MEDS: DUONEB (A & A) INH SCH ×6 (03:01→23:27)
--- NOTE | 2018-11-13 08:29 | CARDIAC CATH REPORT ---
DATE OF PROCEDURE :11/12/2018 INDICATION: Systolic heart failure, runs of nonsustained VT. PROCEDURES PERFORMED: 1. Left heart catheterization. 2. Selective coronary angiography. PROCEDURE IN DETAIL: Mr. Light was brought to the catheterization laboratory in a fasting state. Informed consent was obtained. Prepped in the usual fashion. He was anesthetized over the right radial artery after Franky's test proved adequate. A 5-E[place]ian sheath was placed via true Seldinger technique. Radial cocktail was administered. Catheters were introduced. Hemodynamic measurements were made in the ascending thoracic aorta. Coronary angiography was performed in multiple views using JL3.5 and JR4 diagnostic catheters. Left heart catheterization was performed using the JR4. At the conclusion of the procedure, all sheaths and catheters were removed. TR band was left inflated at 10 mL of air. Good capillary refill. There were 70 mL of IV contrast and 5-10 mL of blood loss. No apparent complications. FINDINGS: 1. The left main has a 40 percent ostial lesion, originates from the left coronary cusp. 2. Left anterior descending has a complex early mid vessel severe lesion that is quite long. It involves almost the entirety of the mid vessel as well as the late distal vessel. There is a fairly large remainder of the mid vessel as well as distal vessel. This gives collaterals, it appears to occluded vessels in the circumflex territory as well as the right coronary. 3. Circumflex originates from the left main. There is a proximal 60 to 70 percent lesion. There is an OM1 that is a small to moderate vessel that is occluded ostially and reconstitutes via [id number] collaterals. 4. Right coronary is occluded ostially. There is a small distal system that is seen via left injection, supplied by [id number] collaterals. 5. Aortic blood pressure is 100/73 with a mean of 85. Left ventricular pressure is 92/2 with an LVEDP of 8. ASSESSMENT: Mr. Light is a 68-year-old gentleman who presents with systolic heart failure. PLAN: He appears to have complex LAD lesions, a severe circumflex territory lesion, and occluded right coronary. We will obtain a thallium viability study and make considerations for possible revascularization, potentially through a bypass. cc: Germán Way MD MTDD
--- NOTE | 2018-11-13 08:35 | PROGRESS NOTE ---
DATE: 11/13/2018 INTERVAL HISTORY: No acute events overnight. The cardiac cath report dictation is pending. SUBJECTIVE: He is denying any chest pain. He feels his shortness of breath had improved a few days ago, and now this morning, he is slightly feeling short of breath. His lower extremity edema has decreased. We discussed about getting myocardial viability study, and I answered all of his questions. OBJECTIVE: Vital Signs: Temperature 98 degrees, pulse 76, respiratory rate 15, blood pressure 140/90, saturating 95% room air. General: Does not appear in any acute distress. HEENT: Oral cavity is moist. Lungs: Air entry bilaterally equal. No wheeze, rhonchi, or crackles. Cardiovascular: S1, S2 normal. No murmur, rub, or gallop. Abdomen: Soft, nontender. Extremities: No lower extremity edema. Neurologic: He is alert and oriented x3. LABORATORY DATA: No CBC or BMP today. His creatinine is 0.9. Magnesium 2.2. MICROBIOLOGY: No data. IMAGING: No data. ASSESSMENT AND PLAN: 1. Acute hypoxic respiratory failure due to acute pulmonary edema due to acute systolic and diastolic congestive heart failure and pulmonary hypertension. Continue oxygen as needed to maintain saturation more than 94%, and wean down as tolerated. 2. Acute systolic and diastolic congestive heart failure with ejection fraction of 20% with triple-vessel coronary artery disease as per documentation, though the final catheterization dictation is pending. Continue metoprolol, losartan, Lasix, digoxin, and also atorvastatin. Appreciate Cardiology recommendation about starting him on aspirin and need for LifeVest at the time of discharge. Myocardial viability study is pending. 3. Nonsustained ventricular tachycardia. His magnesium is more than 2. Continue metoprolol. Cardiology on board. Will appreciate recommendation for LifeVest at the time of discharge. 4. Chronic obstructive pulmonary disease, pulmonary fibrosis, without any acute exacerbation, with past history of tobacco abuse and asbestos exposure. I would advise him outpatient followup with his regular doctor. 5. Hyponatremia has resolved. 6. Continue Pepcid for gastroesophageal reflux disease; statin for hyperlipidemia. 7. Disposition. Awaiting myocardial viability study and further Cardiology recommendations. cc: Se Albrecht MD
[2018-11-13] MEDS: LASIX PO SCH (09:01)
[2018-11-13] MEDS: LANOXIN PO SCH (09:01)
[2018-11-13] MEDS: COZAAR PO SCH (09:01)
[2018-11-13] MEDS: TOPROL XL PO SCH (09:02)
[2018-11-13] MEDS: PEPCID PO SCH (09:02)
[2018-11-13] MEDS: LIPITOR PO SCH (09:02)
--- NOTE | 2018-11-13 13:34 | CARDIOLOGY PROGRESS NOTE ---
DATE: 11/13/2018 SUBJECTIVE: Mr. Light has had no pain complaints. He denies any orthopnea. PHYSICAL EXAMINATION: Vital Signs: Afebrile. His heart rate is 102; seems to be running primarily in the 90s to low 100s. His blood pressure is 118/75. His I's and O's continue to be slightly negative. Generally: He is in no acute distress. Cardiovascular: He sounds to be in a regular rate and rhythm. He has no obvious murmurs. He has no S3. He has no lower extremity edema. Chest: Exam sounds clear bilaterally. He has no increased work of breathing. Abdomen: Soft, nontender, nondistended. He has no obvious organomegaly. PERTINENT DATA: Lab hou, he has no new data from today, other than a magnesium level that was 2.2 and a creatinine of 0.9. ASSESSMENT: Mr. Light is a 68-year-old gentleman, who has an ischemic cardiomyopathy based on cardiac catheterization yesterday. PLAN: He is undergoing a viability study. If there is a significant degree of viability found, we will discuss the case with the CV surgeons tomorrow. He likely could be discharged tomorrow with followup arranged with CV Surgery, if coronary bypass is possible. cc: Germán Way MD
[2018-11-14] MEDS: DUONEB (A & A) INH SCH ×3 (03:01→11:57)
[2018-11-14] MEDS ORDERED: ASPIRIN PO SCH (09:00)
[2018-11-14] MEDS: LANOXIN PO SCH (09:13)
[2018-11-14] MEDS: LIPITOR PO SCH (09:13)
[2018-11-14] MEDS: PEPCID PO SCH (09:13)
[2018-11-14] MEDS: LASIX PO SCH (09:13)
[2018-11-14] MEDS: COZAAR PO SCH (09:13)
[2018-11-14] MEDS: TOPROL XL PO SCH (09:14)
[2018-11-14 11:56] VITALS: BP 106/62
--- NOTE | 2018-11-14 12:34 | DISCHARGE SUMMARY ---
ADMISSION DATE: 11/06/2018 DISCHARGE DATE: 11/14/2018 DISCHARGE DISPOSITION: Home with home oxygen. DISCHARGE CONDITION: Hemodynamically stable, alert, oriented x3. Comfortable at rest on 2 L oxygen. However, on physical exertion, he does get a little short of breath. Family is at bedside. DISCHARGE DIAGNOSES: 1. Acute hypoxic respiratory failure. 2. Acute pulmonary edema. 3. 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 4. Pulmonary hypertension. 5. 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 6. Episodes of nonsustained ventricular tachycardia. OTHER DIAGNOSES: 1. History of tobacco abuse, quit a few years ago. 2. History of abdominal aortic aneurysm repair. DISCHARGE MEDICATIONS: Basic metabolic panel and magnesium lab slips have been provided to him to be done within 5 days. Famotidine 40 mg daily, acetaminophen 1000 mg every 6 hours as needed for pain, aspirin 81 mg daily, losartan 25 mg daily, digoxin 125 mcg daily, furosemide 40 mg daily, atorvastatin 40 mg daily, metoprolol succinate extended release 50 mg daily. CONSULTATIONS AND PROCEDURES DURING HOSPITAL ADMISSION: Cardiology, Dr. Germán Way. He underwent coronary angiography. Myocardium Valium viability study. VITALS: At the time of discharge, temperature 97.3 degrees, pulse 90, respiratory rate 20, blood pressure 110/67, saturating 95% 2 L nasal cannula. PHYSICAL EXAMINATION: General: Does not appear in any acute distress. Oral cavity is moist. Lungs: Air entry bilaterally equal. No wheeze or rhonchi. Mild Velcro crackles bilateral infrascapular region, S1, S2 normal. Regular. No murmur, rub, or gallop. Abdomen: Soft, nontender. Extremity: No lower extremity edema. He is alert and oriented x3. SIGNIFICANT LABS DURING HOSPITAL ADMISSION AND DISCHARGE: WBC 8.1, hemoglobin 13.8, platelet 219,000, BUN 15, creatinine 1, magnesium 2.2. SIGNIFICANT MICRO DURING HOSPITAL ADMISSION: Sputum culture, blood culture did not have any growth. SIGNIFICANT IMAGING DURING HOSPITAL ADMISSION: Chest x-ray on admission had bibasilar pneumonia, pleural effusions and pulmonary edema. Chest CT on admission had pulmonary fibrosis with superimposed pulmonary edema, pericardial and pleural effusions. Chest x-ray on November 11 had pulmonary edema and/or pneumonia, which was improved than on presentation. Echocardiogram on November 06 had suggested markedly dilated left ventricle with severely impaired systolic ejection fraction of 15 to 20 percent, mild to moderate mitral regurgitation, severe diastolic dysfunction, moderate pulmonary hypertension of 58 mmHg, significant enlargement of left atrium and moderately enlarged right-sided chambers. Electrocardiogram had sinus tachycardia with premature atrial complexes. Left axis deviation, nonspecific T-wave abnormality. Cardiac cath report had 40% distal lesion of left main, left anterior descending had a complex early midvessel severe lesion involving almost the entirety of the mid vessel as well as late distal vessel, about 60 to 70 percent lesion involving left circumflex, ostial stenosis of right coronary artery, left ventricular end-diastolic pressure of 8. HOSPITAL COURSE SUMMARY: Mr. Light is a 68 year old man who initially presented on 11/06/2018 from his regular doctor's office for chief complaint of persistent shortness of breath. Apparently, patient had been experiencing orthopnea and shortness of breath since about 22 hours duration associated with lower extremity swelling. He had gone to a walk-in cleaning and was diagnosed with pneumonia and had completed 10 days of antibiotics following which he saw his regular doctor. However, his shortness of breath was persistent and he was hypoxic with saturation of 85% on room air so he was sent over as a direct admit to the hospital. In the hospital on arrival, he was found to be hypoxic, needing about 2 to 3 L of nasal cannula oxygen, had crackles on lung examination with bilateral lower extremity edema, so an echocardiogram was performed. He was also empirically started on antibiotics for suspected persistent pneumonia with cough. His echocardiogram had low ejection fraction and with IV diuretics is improved. His cardiac cath had severe triple-vessel disease, so myocardial Valium study was performed. He is to follow up with Cardiology as an outpatient and discuss about need for CABG in the future. He also developed nonsustained ventricular tachycardia during hospital admission and he was started on beta julieta, following which he was stable. At the time of discharge, he was hemodynamically stable. His cardiovascular regimen was optimum. He was advised to have outpatient Cardiology followup and possible Cardiothoracic surgery at [facility] for need for CABG in the future. All of the patient's and his 's questions were answered satisfactorily answered. More than 30 minutes spent on discharging this patient. cc: MD ALEXANDER Herndon
--- NOTE | 2018-11-15 11:00 | Diag Imaging Result Document ---
PROCEDURE NAME: MYOCARDIAL PERFU SCAN, REST - 11/12/2018 INDICATION: Congestive heart failure, coronary artery disease, ischemic cardiomyopathy. PROCEDURE PERFORMED: Thallium viability study. PROCEDURE IN DETAIL: Mr. Light was brought to the nuclear laboratory and had a thallium viability study performed with immediate, 4-hour, and 24-hour images obtained after 3.7 mCi of thallium-201 injection. FINDINGS: 1. There appears to be a baseline mild intensity, relatively small defect located in the mid and basal lateral wall. 2. On 4-hour and 24-hour images, this defect appears relatively persistent. There is no significant defect identified on imaging in the septum, anterior wall, inferior wall, or apex on either baseline, 4-hour, or 24-hour images, suggesting viability in these territories. cc: Germán Way MD
== END 2018-11-14 14:55 | disposition home or self-care (01) | DRG 286 ==
LOC: SUATTDRO 12:46 → DIRADM 12:46 → 4N 13:02 → 3S 11-11 15:10 → 2N 11-14 11:46
PROVIDERS: ATTEND Internal Medicine